=== PATIENT | female | born 1980 | race Hispanic/Latino ===

== ENCOUNTER → 2023-10-19 | Outpatient (CLI) | payer OTHER | END | disposition home or self-care (01) | LOC: RAH 07:47 | PROVIDERS: ATTEND Obstetrics & Gynecology | DX: Z12.31 Encounter for screening mammogram for malignant neoplasm of breast (principal) | CPT/HCPCS: 77067 ==

== ENCOUNTER 2024-01-14 21:25 | Inpatient (IN) | payer OTHER ==
[~2024-01-14] VITALS: Ht 157.5 cm; Wt 94.5 kg
[2024-01-14] MEDS: HYDROcodone/APAP 5/325 1 TAB TABLET PO ONE (23:46)
[2024-01-14] MEDS: DIPH,PERTUSS(ACELL),TET VAC/PF 0.5 ML VIAL IM ONE (23:46)
[2024-01-15] VITALS (29 sets, daily range): BP systolic 116–161; BP diastolic 64–87; PULSE 65–92; RESP 15–20; O2SAT 95
[2024-01-15] MEDS: MORPHINE 4 MG SYG IVP ONE (00:30)
[2024-01-15] MEDS: ONDANSETRON 4MG INJ IVP ONE (00:30)
[2024-01-15] MEDS ORDERED: ONDANSETRON 4MG INJ IVP PRN (00:30)
[2024-01-15] MEDS: 0.9%NACL 1000ML 1,000 ML IV ONE (00:30)
[2024-01-15] MEDS ORDERED: MORPHINE 4 MG SYG IM PRN (00:30)
[2024-01-15 00:59] LABS: CREATININE 0.7 mg/dL (0.5-1.0)
[2024-01-15 01:03] LABS: INR 0.99 (0.85-1.15); PROTHROMBIN TIME 10.7 SEC (9.6-11.6)
[2024-01-15 01:04] LABS: PARTIAL THROMBOPLASTIN TIME 26.2 SEC (26.3-35.5)
[2024-01-15 01:14] LABS: BASOPHILS # (AUTO) 0.06 K/uL (0.00-0.20); BASOPHILS % (AUTO) 0.7 % (0.0-5.0); EOSINOPHILS # (AUTO) 0.04 K/uL (0.00-0.70); EOSINOPHILS % (AUTO) 0.5 % (0.0-8.0); HEMATOCRIT 33.1 % (36-48); IMMATURE GRANULOCYTE ABSOLUTE 0.03 K/uL (0-1); LYMPHOCYTES # (AUTO) 1.2 K/uL (1.0-4.8); LYMPHOCYTES % (AUTO) 13.8 % (21.0-51.0); MEAN CORPUSCULAR HEMOGLOBIN 25.8 pg (27.0-33.0); MEAN CORPUSCULAR HGB CONC 32.6 g/dL (32.0-36.0); MEAN CORPUSCULAR VOLUME 79.2 fL (79-99); MONOCYTES # (AUTO) 0.4 K/uL (0.1-1.0); MONOCYTES % (AUTO) 4.9 % (3.0-13.0); NEUTROPHILS # (AUTO) 6.9 K/uL (1.8-7.7); NEUTROPHILS % (AUTO) 79.8 % (40.0-77.0); PLATELET COUNT (AUTO) 240 K/uL (130-400); RED BLOOD CELL COUNT(AUTO) 4.18 MIL/uL (4.00-5.50); RED CELL DISTRIBUTION WIDTH 17.8 % (11.0-15.5); WHITE BLOOD COUNT (AUTO) 8.6 K/uL (4.8-10.8)
[2024-01-15] MEDS: 0.9%NACL 1000ML 1,000 ML IV SCH ×2 (05:31→15:30)
[2024-01-15] MEDS: HYDROcodone/APAP 5/325 1 TAB TABLET PO PRN ×2 (05:34→18:02)
[2024-01-15 05:43] LABS: BASOPHILS # (AUTO) 0.05 K/uL (0.00-0.20); BASOPHILS % (AUTO) 0.6 % (0.0-5.0); EOSINOPHILS # (AUTO) 0.08 K/uL (0.00-0.70); HEMATOCRIT 31.6 % (36-48); IMMATURE GRANULOCYTE ABSOLUTE 0.01 K/uL (0-1); LYMPHOCYTES # (AUTO) 2.4 K/uL (1.0-4.8); LYMPHOCYTES % (AUTO) 28.9 % (21.0-51.0); MEAN CORPUSCULAR HEMOGLOBIN 25.8 pg (27.0-33.0); MEAN CORPUSCULAR HGB CONC 32.3 g/dL (32.0-36.0); MONOCYTES # (AUTO) 0.6 K/uL (0.1-1.0); MONOCYTES % (AUTO) 7.5 % (3.0-13.0); NEUTROPHILS # (AUTO) 5.1 K/uL (1.8-7.7); NEUTROPHILS % (AUTO) 61.9 % (40.0-77.0); PLATELET COUNT (AUTO) 217 K/uL (130-400); RED BLOOD CELL COUNT(AUTO) 3.95 MIL/uL (4.00-5.50); RED CELL DISTRIBUTION WIDTH 17.5 % (11.0-15.5); WHITE BLOOD COUNT (AUTO) 8.2 K/uL (4.8-10.8)
[2024-01-15 06:03] LABS: INR 1.02 (0.85-1.15)
[2024-01-15 06:05] LABS: PARTIAL THROMBOPLASTIN TIME 26.5 SEC (26.3-35.5)
[2024-01-15 06:10] LABS: CREATININE 0.7 mg/dL (0.5-1.0); POTASSIUM 3.7 mmol/L (3.5-5.1)
[2024-01-15] MEDS: ceFAZolin SODIUM 2 GM VIAL IVPB ONE (08:00)
[2024-01-15] MEDS ORDERED: MORPHINE 4 MG SYG IV PRN (08:30)
[2024-01-15] MEDS ORDERED: KETAMINE 50MG/ML SYRINGE 50 MG/ML DISP.SYRIN ONE ×2 (12:17→13:32)
[2024-01-15] MEDS ORDERED: LIDOCAINE PF 100MG/5ML (2%) SYRINGE 5ML ONE (12:18)
[2024-01-15] MEDS ORDERED: rocuRONium bROMide 10MG/1ML 5ML VL ONE (12:18)
[2024-01-15] MEDS ORDERED: proPOFol 10 MG/ML 20ML VIAL IV ONE (12:18)
[2024-01-15] MEDS ORDERED: FENTanyl CITRate PF 50 MCG/1 ML 2ML VIAL ONE (12:19)
[2024-01-15] MEDS: SCOPOLAMINE HYDROBROMIDE 1 EACH ADH..PATCH TD ONE (12:20)
[2024-01-15] MEDS: LACTATED RINGERS 1000ML 1,000 ML IV ONE (12:21)
[2024-01-15] MEDS: ceFAZolin SODIUM 2 GM VIAL ONE (12:21)
[2024-01-15] MEDS ORDERED: ONDANSETRON 4MG INJ ONE (12:52)
[2024-01-15] MEDS ORDERED: dexaMETHasone SOD PHOSPHATE 10MG/ML 1ML VIAL ONE (12:52)
[2024-01-15] MEDS: ceFAZolin SODIUM 1 GM VIAL ONE (13:30)
[2024-01-15] MEDS ORDERED: MIDAZOLAM HCL 1 MG/ML 2ML VIAL ONE (13:40)
[2024-01-15] MEDS ORDERED: GLYCOPYRROLATE 0.2 MG/ML 5 ML VIAL ONE (14:33)
[2024-01-15] MEDS ORDERED: NEOSTIGMINE METHYLSULFATE 1MG/ML IV ONE (14:33)
[2024-01-15] MEDS ORDERED: POTASSIUM CHLORIDE 10% ELIXIR 20 MEQ/15 ML UDCUP PO PRN (15:30)
[2024-01-15] MEDS ORDERED: POTASSIUM CHLORIDE 20MEQ/100ML 100 ML IV PRN (15:30)
[2024-01-15] MEDS ORDERED: CALCIUM CARB 500MG PO PRN (15:30)
[2024-01-15] MEDS ORDERED: FERROUS FUMARATE 324 MG TABLET PO PRN (15:30)
[2024-01-15] MEDS ORDERED: DiphenhydrAMINE HCL 25 MG CAPSULE PO PRN (15:30)
[2024-01-15] MEDS: ONDANSETRON 4MG INJ ONE (15:30)
[2024-01-15] MEDS ORDERED: KCL 20 MEQ ERTAB PO PRN (15:30)
[2024-01-15] MEDS ORDERED: ceFAZolin SODIUM 2 GM VIAL IVPB SCH (15:30)
[2024-01-15] MEDS ORDERED: DiphenhydrAMINE HCL 50 MG/ML VIAL IVP PRN (15:30)
[2024-01-15] MEDS ORDERED: TEMAZEPAM 15 MG CAPSULE PO PRN (15:30)
[2024-01-15] MEDS: FAMOTIDINE 20MG VIAL IV ONE (19:00)
[2024-01-15] MEDS: acetaMINOPHEN 1,000 MG/100 ML VIAL IV ONE (19:00)
[2024-01-15] MEDS: KETOROLAC 30MG VIAL (30MG/ML) IV PRN (20:02)
[2024-01-15] MEDS: ceFAZolin SODIUM 2 GM VIAL IVPB SCH (20:03)
[2024-01-15] MEDS: CeleCOXib 200 MG CAP PO SCH (20:03)
[2024-01-15] MEDS: FAMOTIDINE 20MG TAB PO SCH (20:03)
[2024-01-16] VITALS: BP 101/49; PULSE 66; RESP 18
[2024-01-16 04:00] VITALS: BP 103/52; PULSE 58; RESP 18
[2024-01-16 08:00] VITALS: O2SAT 95
[2024-01-16 08:15] VITALS: BP 108/66; PULSE 60; RESP 20
[2024-01-16] MEDS: POLYETHYLENE GLYCOL 3350 17 GM POWD.PACK PO SCH (09:46)
[2024-01-16] MEDS: ENOXAPARIN SODIUM 40 MG/0.4 ML SYRINGE SQ SCH (09:46)
[2024-01-16 11:02] VITALS: BP 129/51; PULSE 63; RESP 16
[2024-01-16] MEDS: PSYLLIUM SEED 1 EACH PACKET PO SCH (12:00)
[2024-01-16] MEDS ORDERED: AEC81 PO (12:13)
[2024-01-16] MEDS ORDERED: HYDR-4060 PO (12:13)
[2024-01-16 16:01] VITALS: BP 128/56; PULSE 60; RESP 20
== END 2024-01-16 18:05 | disposition home or self-care (01) | DRG 494 ==
LOC: EDH 21:25 → EDHIP 01-15 00:58 → 4BH 01-15 01:48
PROVIDERS: ADMIT Orthopaedic Surgery; ATTEND Orthopaedic Surgery
PROC: 0QSK04Z Reposition Left Fibula with Internal Fixation Device, Open Approach (ICD-10-PCS; 2024-01-15)
PROC: 0QSH04Z Reposition Left Tibia with Internal Fixation Device, Open Approach (ICD-10-PCS; principal; 2024-01-15 12:29)
DX: S82.842A Displaced bimalleolar fracture of left lower leg, initial encounter for closed fracture (principal); Z90.49 Acquired absence of other specified parts of digestive tract; X50.1XXA Overexertion from prolonged static or awkward postures, initial encounter; Y93.89 Activity, other specified; Y92.89 Other specified places as the place of occurrence of the external cause; Y99.8 Other external cause status
CPT/HCPCS: 36415; 73590; 73600; 80048; 81025; 85025; 85610; 85730; 86850; 86900; 86901; 86923; 90715; 93005; 96372; G0378; J0690; J1100; J1650; J1885; J2001; J2250; J2405; J2704; J2710; J3010; J3490; J7120; A4213; A4216; A4222; A4223; A4600